=== PATIENT | female | born 1980 | race Caucasian/White ===

== ENCOUNTER → 2020-02-26 08:15 | Outpatient (CLI) | payer OTHER, SELFPAY ==
[2020-02-26 10:00] LABS: Cholesterol 229 mg/dL (140-199); HDL Cholesterol 59 mg/dL (40-60); LDL Cholesterol Calculated 150 mg/dL (<100); Triglycerides 101 mg/dL (35-150)
[2020-02-26 10:01] LABS: Alanine Aminotransferase 9 IU/L (<35); Albumin 4.5 g/dL (3.5-5.0); Albumin Globulin Ratio 1.7 (1.0-2.8); Alkaline Phosphatase 54 U/L (38-126); Aspartate Aminotransferase 22 IU/L (14-36); BUN Creatinine Ratio 17.8 (6-22); Bilirubin Total 0.8 mg/dL (0.2-1.3); Blood Urea Nitrogen 13 mg/dL (7-17); Calcium 9.7 mg/dL (8.4-10.2); Carbon Dioxide 25 mmol/L (22-32); Chloride 104 mmol/L (98-107); Estimated Glomerular Filt Rate > 60.0 mL/min (>60); Globulin 2.6 g/dL (1.7-4.1); Glucose 101 mg/dL (70-100); HEMOLYSIS < 15 (0-50); Potassium 4.5 mmol/L (3.4-5.1); Sodium 135 mmol/L (137-145); Total Protein 7.1 g/dL (6.3-8.2)
== END ==
PROVIDERS: Family Provider Family Medicine; PCP Family Medicine; Referring Provider Registered Nurse; Visit Provider Registered Nurse
DX: B00.9 Herpesviral infection, unspecified (principal); E66.3 Overweight; Z83.438 Family history of other disorder of lipoprotein metabolism and other lipidemia
CPT/HCPCS: 80053; 80061

== ENCOUNTER → 2020-12-06 08:59 | Outpatient (CLI) | payer OTHER, SELFPAY ==
--- NOTE | 2020-12-06 09:02 | DI.CT.S_ITS ---
PROCEDURE: CT SINUS SCREEN WO CON INDICATIONS: Sinusitis TECHNIQUE: Noncontrast 3.0 mm axial images acquired from the frontal sinuses to the mid-sella, with coronal and sagittal reformats. For radiation dose reduction, the following was used: automated exposure control, adjustment of mA and/or kV according to patient size. COMPARISON: None. FINDINGS: Image quality: Excellent. Maxillary Sinuses: No bony remodeling or destruction. Sinuses are clear. Ethmoid Air Cells: No bony remodeling or destruction. Sinuses are clear. Sphenoid Sinuses: No bony remodeling or destruction. Sinuses are clear. Frontal Sinuses: No bony remodeling or destruction. Sinuses are clear. Ostiomeatal Complexes: Ostiomeatal complexes are patent. No Naomie cells. Miscellaneous: Visualized intra-orbital contents are normal. Right-sided tiago bullosa. No paradoxical nasal turbinate curvature. Mild S-shaped nasal septal deviation with minimal spurring to the right at the level of the inferior nasal turbinate. Asymmetric elevation of the right fovea ethmoidalis when compared with the left by approximately 3 millimeters. IMPRESSION: No findings of acute or chronic sinusitis. Right tiago bullosa and mild nasal septal deviation. Dictated by: Roberth Frederick M.D. on 12/06/2020 at 9:44 Approved by: Roberth Frederick M.D. on 12/06/2020 at 9:46
== END ==
PROVIDERS: Family Provider Family Medicine; PCP Family Medicine; Referring Provider Family Medicine; Visit Provider Family Medicine
DX: J32.9 Chronic sinusitis, unspecified (principal); J34.2 Deviated nasal septum; J34.89 Other specified disorders of nose and nasal sinuses
CPT/HCPCS: 70486

== ENCOUNTER → 2022-06-05 11:46 | Outpatient (CLI) | payer OTHER, SELFPAY ==
[2022-06-05 13:19] LABS: Add Manual Diff / Slide Review NO; Basophils Absolute Auto 100 /uL (0-100); Basophils Percent Auto 0.9 % (0-2); Eosinophils Absolute Auto 500 /uL (0-450); Eosinophils Percent Auto 6.8 % (2-4); Hematocrit 41.7 % (36-46); Hemoglobin 14.1 g/dL (12.0-16.0); Lymphocytes Absolute Auto 2800 /uL (1100-4500); Mean Corpuscular HGB Conc 33.9 % (30-36); Mean Corpuscular Hemoglobin 31.7 PG (26-34); Mean Corpuscular Volume 93.7 fL (80-100); Monocytes Absolute Auto 400 /uL (0-900); Monocytes Percent Auto 5.7 % (3-14); Neutrophils Absolute Auto 3700 /uL (1500-7000); Neutrophils Percent Auto 49.6 % (50-75); Platelet Count 297 X10^3/uL (150-400); Red Blood Cell Count 4.45 X10^6/uL (4.0-5.2); Red Cell Distribution Width 12.7 % (11.6-14.8); White Blood Cell Count 7.6 X10^3/uL (4.5-11.0)
[2022-06-05 13:22] LABS: Alanine Aminotransferase 14 IU/L (<35); Albumin 4.5 g/dL (3.5-5.0); Albumin Globulin Ratio 1.6 (1.0-2.8); Alkaline Phosphatase 65 U/L (38-126); Aspartate Aminotransferase 20 IU/L (14-36); BUN Creatinine Ratio 13.2 (6-22); Bilirubin Total 0.5 mg/dL (0.2-1.3); Blood Urea Nitrogen 10 mg/dL (7-17); Carbon Dioxide 30 mmol/L (22-32); Chloride 98 mmol/L (98-107); Estimated Glomerular Filt Rate > 60 mL/min (>60); Globulin 2.9 g/dL (1.7-4.1); Glucose 90 mg/dL (70-100); HEMOLYSIS < 15 (0-50); Lipase 42 U/L (23-300); Potassium 4.6 mmol/L (3.4-5.1); Sodium 137 mmol/L (137-145); Total Protein 7.4 g/dL (6.3-8.2)
== END ==
PROVIDERS: Family Provider Family Medicine; PCP Family Medicine; Referring Provider Family Medicine; Visit Provider Family Medicine
DX: R10.11 Right upper quadrant pain (principal)
CPT/HCPCS: 36415; 80053; 83690; 85025

== ENCOUNTER → 2022-08-03 08:18 | Outpatient (CLI) | payer OTHER, SELFPAY ==
--- NOTE | 2022-08-03 08:20 | DI.MG.S_ITS ---
BILATERAL DIGITAL SCREENING MAMMOGRAM 3D/2D WITH CAD: 08/03/2022 CLINICAL: Routine screening. Baseline exam. Family history of breast cancer. No prior exams were available for comparison. Both breasts are heterogeneously dense, which may obscure small masses (category c / 51-75% glandular tissue). Current study was also evaluated with a Computer Aided Detection (CAD) system. No significant masses, calcifications, or other findings are seen in either breast. IMPRESSION: NEGATIVE There is no mammographic evidence of malignancy. A 1 year screening mammogram is recommended. Based on Tyrer-Cuzick model (a risk assessment model), the patient's lifetime risk is 23.1% and her 10 year risk is 3.4%. If a patient has an elevated risk, a more comprehensive evaluation should be considered and/or a referral to a genetic counselor. The [place] [employer], [employer], and NCCN Guidelines advise the consideration of Breast MRI as an adjunct to screening mammography in patients whose Lifetime risk to develop breast cancer is 20% or higher. This exam was interpreted at Station ID: [id number]. NOTE: For mammograms, a report in lay terms will be sent to the patient. Approximately 15% of breast malignancies will not be visualized mammographically. In the management of a palpable breast mass, a negative mammogram must not discourage biopsy of a clinically suspicious lesion. Electronically Signed By: Neisha hassan/may:08/03/2022 14:59:25 letter sent: Normal Exam ACR BI-RADS Category 1: Negative [id number]
--- NOTE | 2022-08-03 08:20 | DI.US.S_ITS ---
PROCEDURE: US PELVIC COMPLETE INDICATIONS: RIGHT PELVIC PAIN TECHNIQUE: Real-time scanning was performed of the pelvic organs, with image documentation. Additional endovaginal scanning was necessary due to incomplete visualization of the adnexal and endometrial structures by transabdominal scanning. COMPARISON: [facility], US, PELVIC COMPLETE, 05/04/2011, 13:52. FINDINGS: Uterus: Uterus is anteverted and normal in size at 8.5 x 4.1 x 6.7 cm. The myometrium is homogeneous. The endometrium measures 4 mm combined thickness. Intrauterine device is seen in expected position within the endometrial canal. Ovaries: The right ovary measures 1.7 x 2.8 x 2.3 cm cm, with a calculated ovarian volume of 5.7 cc. The left ovary measures 1.6 x 2.9 x 1.5 cm, with a calculated ovarian volume of 3.5 cc. The ovaries have a normal sonographic appearance. A minimally complicated septated anechoic cyst in the right ovary measures 1.3 x 2.3 x 1.6 cm. Less than 12 follicles can be seen in each ovary. No adnexal masses are seen. Other: No pathologic free abdominal or pelvic fluid. IMPRESSION: 1. No sonographic signs of ovarian torsion. 2. Right ovarian 2.3 cm cyst contains a single thin septation and is almost certainly benign. 3. Intrauterine device in appropriate position. We strive to produce accurate, complete, and clear reports of imaging services. To assist us in improving patient care, this report was composed using standard report templates and voice recognition software. Therefore, it may contain abnormal punctuation, insertions and/or omissions. Occasional wrong-word or sound-alike substitutions may occur. Though we review the report and make efforts to correct it, we do recommend that the report be read carefully in proper context to recognize any text inaccuracies. Approved by: Clement Blanchard M.D. on 08/03/2022 at 9:57
--- NOTE | 2022-08-03 08:20 | DI.US.S_ITS ---
PROCEDURE: US ABDOMEN LIMITED INDICATIONS: RUQ PAIN TECHNIQUE: Real-time focused scanning was performed of the abdomen, with image documentation. COMPARISON: None. FINDINGS: Liver is normal in size and echogenicity. The gallbladder appears normal without gallstones or gallbladder wall thickening. There is no pericholecystic fluid. Sonographic Torres sign is negative. No intrahepatic or extrahepatic biliary ductal dilatation. The common bile duct measures 3 mm in diameter. Visualized portions of the pancreas are unremarkable. No free fluid in the right upper quadrant. IMPRESSION: No significant sonographic abnormality in the right upper quadrant. Approved by: Clement Blanchard M.D. on 08/03/2022 at 9:58
== END ==
PROVIDERS: Family Provider Family Medicine; PCP Family Medicine; Referring Provider Family Medicine; Visit Provider Family Medicine
DX: Z12.31 Encounter for screening mammogram for malignant neoplasm of breast (principal); N94.0 Mittelschmerz; R10.11 Right upper quadrant pain; Z80.3 Family history of malignant neoplasm of breast; N83.201 Unspecified ovarian cyst, right side; Z97.5 Presence of (intrauterine) contraceptive device
CPT/HCPCS: 76705; 76830; 76856; 77063; 77067; 93976

== ENCOUNTER → 2022-09-11 14:41 | Outpatient (CLI) | payer OTHER, SELFPAY ==
[2022-09-11 15:49] LABS: Pregnancy Test Urine Negative (Negative)
== END ==
PROVIDERS: Family Provider Family Medicine; PCP Family Medicine; Visit Provider Physician Assistant
DX: N39.0 Urinary tract infection, site not specified (principal); R14.0 Abdominal distension (gaseous)
CPT/HCPCS: 81025; 87086

== ENCOUNTER 2022-09-12 08:21 | Emergency (ER) | payer OTHER, SELFPAY ==
[2022-09-12 08:25] VITALS: BP 118/68; PULSE 92; RESP 16; TEMP 36.4; O2SAT 99; BMI 30.3
--- NOTE | 2022-09-12 08:43 | DI.US.S_ITS ---
PROCEDURE: US PELVIC COMPLETE INDICATIONS: pelvic pain, recently identified cyst, IUD removal TECHNIQUE: Real-time scanning was performed of the pelvic organs, with image documentation. Additional endovaginal scanning was necessary due to incomplete visualization of the adnexal and endometrial structures by transabdominal scanning. COMPARISON: [facility], US, US PELVIC COMPLETE, 08/03/2022, 8:27. FINDINGS: Uterus: Uterus is anteverted and normal in size at 8.0 x 4.0 x 5.9 cm. The myometrium is heterogeneous. The endometrium measures 2.3 mm combined thickness. No fibroids noted. Ovaries: The right ovary measures 2.3 x 3.2 x 1.8 cm, with a calculated ovarian volume of 7.0 cc. The left ovary measures 2.0 x 1.5 x 1.8 cm, with a calculated ovarian volume of 2.8 cc. The ovaries have a normal sonographic appearance. Less than 12 follicles can be seen in each ovary. There is a hemorrhagic right ovarian cyst measuring 1.7 x 1.1 x 1.6 cm. No adnexal masses are seen. Other: No pathologic free abdominal or pelvic fluid. IMPRESSION: 1. Small hemorrhagic right ovarian cyst. 2. Otherwise unremarkable study. We strive to produce accurate, complete, and clear reports of imaging services. To assist us in improving patient care, this report was composed using standard report templates and voice recognition software. Therefore, it may contain abnormal punctuation, insertions and/or omissions. Occasional wrong-word or sound-alike substitutions may occur. Though we review the report and make efforts to correct it, we do recommend that the report be read carefully in proper context to recognize any text inaccuracies. Dictated by: Dl Shore M.D. on 09/12/2022 at 9:58 Approved by: Dl Shore M.D. on 09/12/2022 at 10:01
[2022-09-12 09:13] LABS: Appearance Urine UA CLEAR; Bilirubin Urine UA NEGATIVE (NEGATIVE); Color Urine UA YELLOW; Glucose Urine UA NEGATIVE (Negative); Ketones Urine UA NEGATIVE (NEGATIVE); Leukocyte Esterase Urine UA NEGATIVE (NEGATIVE); Nitrite Urine UA NEGATIVE (Negative); Occult Blood Urine UA NEGATIVE (Negative); Protein Urine UA NEGATIVE (Negative); Urobilinogen Urine UA 0.2 E.U./dL (0.2)
[2022-09-12 09:24] LABS: Bacteria Urine None Seen; Culture Indicated Urine Cult Not Indicated; RBC Urine None Seen (0-5/HPF); Urine Comments Microscopic Normal; WBC Urine None Seen (0-5/HPF)
[2022-09-12 09:30] LABS: Add Manual Diff / Slide Review NO; Basophils Absolute Auto 100 /uL (0-100); Basophils Percent Auto 0.9 % (0-2); Eosinophils Absolute Auto 600 /uL (0-450); Eosinophils Percent Auto 6.3 % (2-4); Hematocrit 39.2 % (36-46); Hemoglobin 13.1 g/dL (12.0-16.0); Lymphocytes Absolute Auto 2200 /uL (1100-4500); Lymphocytes Percent Auto 23.6 % (25-40); Mean Corpuscular HGB Conc 33.3 % (30-36); Mean Corpuscular Hemoglobin 31.7 PG (26-34); Mean Corpuscular Volume 95.3 fL (80-100); Monocytes Absolute Auto 500 /uL (0-900); Monocytes Percent Auto 5.7 % (3-14); Neutrophils Absolute Auto 6000 /uL (1500-7000); Neutrophils Percent Auto 63.5 % (50-75); Platelet Count 310 X10^3/uL (150-400); Red Blood Cell Count 4.12 X10^6/uL (4.0-5.2); Red Cell Distribution Width 13.7 % (11.6-14.8); White Blood Cell Count 9.4 X10^3/uL (4.5-11.0)
[2022-09-12 09:42] LABS: Alanine Aminotransferase 14 IU/L (<35); Albumin 4.4 g/dL (3.5-5.0); Albumin Globulin Ratio 1.5 (1.0-2.8); Alkaline Phosphatase 62 U/L (38-126); Aspartate Aminotransferase 21 IU/L (14-36); BUN Creatinine Ratio 12.7 (6-22); Bilirubin Total 0.8 mg/dL (0.2-1.3); Blood Urea Nitrogen 8 mg/dL (7-17); Calcium 9.2 mg/dL (8.4-10.2); Carbon Dioxide 28 mmol/L (22-32); Chloride 102 mmol/L (98-107); Estimated Glomerular Filt Rate > 60 mL/min (>60); Glucose 93 mg/dL (70-100); HEMOLYSIS < 15 (0-50); Sodium 136 mmol/L (137-145); Total Protein 7.4 g/dL (6.3-8.2)
[2022-09-12 10:38] VITALS: BP 117/68; PULSE 70; RESP 18; O2SAT 99
--- NOTE | 2022-09-13 11:44 | ED_ITS ---
HPI - Female Genitourinary General Chief complaint: Urogenital-Female Stated complaint: had IUD removed T-14 has pain/feels need to pee Time Seen by Provider: 09/12/22 08:24 Source: patient Mode of arrival: Ambulatory History of Present Illness HPI Narrative: 42-year-old female presenting with dysuria and pelvic pain following IUD removal approximately 2 weeks prior to presentation. Patient reports that she developed irritation with urination and frequent urination following IUD removal. Patient has had 2 urinalysis test completed since this procedure that showed no clear evidence of infection. Presents for repeat evaluation. Patient was noted to have a ovarian cyst on recent pelvic ultrasound. No fevers. No flank pain. Related Data Home Medications Medication Instructions Recorded Confirmed levonorgestrel 21 mcg/24 hours (8 52 mg INTRAU ##0 09/24/16 08/21/22 yrs) 52 mg intrauterine device (Mirena) azelastine 137 mcg (0.1 %) nasal 2 spray intranasal BID PRN 12/27/20 08/21/22 spray aerosol olopatadine 0.7 % eye drops 1 drp EYE-BOTH 12/27/20 08/21/22 Previous Rx's Medication Instructions Recorded clotrimazole-betamethasone 1 1 applictn topical BID #15 grams 10/22/19 %-0.05 % topical cream albuterol sulfate 2.5 mg/3 mL 2.5 mg (3 mL) inhalation Q4-6H PRN 03/24/20 (0.083 %) solution for nebulization shortness of breath or wheezing #90 mL triamcinolone acetonide 0.025 % 1 applictn topical BID #15 grams 04/25/20 topical cream hydroxyzine pamoate 25 mg capsule 25 mg PO Q4HP PRN anxiety #90 caps 10/17/20 (Vistaril) albuterol sulfate 90 mcg/actuation 2 puff inhalation Q4-6H #6.7 grams 06/05/22 aerosol inhaler (Proventil HFA) famotidine 40 mg tablet See Rx Instructions .Route 06/05/22 .COMPLEX #90 tabs fluticasone 250 mcg-salmeterol 50 1 inh inhalation BID #60 ea 06/05/22 mcg/dose blistr powdr for inhalation (Advair Diskus) valacyclovir 1 gram tablet 1,000 mg PO BID #20 tabs 07/09/22 methylphenidate HCl 27 mg 27 mg PO QAM #30 tabs 07/11/22 tablet,extended release 24 hr alprazolam 0.5 mg tablet 0.5 mg PO BID PRN anxiety #20 tabs 08/12/22 cephalexin 500 mg capsule 500 mg PO TID #15 caps 09/12/22 Allergies Allergy/AdvReac Type Severity Reaction Status Date / Time crab AdvReac Intermediate Vomiting Verified 09/12/22 08:56 Patient History Medical History Attention deficit hyperactivity disorder (ADHD) Herpes simplex Panic disorder (07/06/13) Family History Father Age: 71 Diabetes mellitus Heart transplanted Heart disease Essential hypertension Grandmother Diabetes mellitus Essential hypertension High cholesterol Mother Age: 73 Diabetes mellitus Malignant neoplasm of female breast, unspecified laterality, unspecified site of breast alcohol intake frequency: 0-2 drinks per day Substance Use Type: marijuana Exam Narrative Exam Narrative: Vitals reviewed. Nursing note reviewed Constitutional: interactive HENT: Moist mucous membranes EYES: No scleral icterus NECK: no masses CV: Well perfused peripherally, no cyanosis present PULM: Unlabored respirations, symmetric chest rise ABD: Non-distended Pelvic: normal appearing external genitalia, no bleeding, scant vaginal discharge, no vaginal lesions noted, no obvious prolapse appreciated MS: No gross deformities, no asymmetric edema noted SKIN: Warm and dry. PSYCH: Appropriate affect NEURO: Follows simple commands, moves extremities, interactive with exam Initial Vital Signs Initial Vital Signs: Vital Signs Temperature 97.5 F L 09/12/22 08:25 Pulse Rate 92 H 09/12/22 08:25 Respiratory Rate 16 09/12/22 08:25 Blood Pressure 118/68 09/12/22 08:25 Pulse Oximetry 99 09/12/22 08:25 Oxygen Delivery Method 09/12/22 08:25 MDM - Female Genitourinary Lab Data 09/12/22 09:20 09/12/22 09:20 Labs: Lab Results 09/12/22 09/12/22 09/12/22 Range/Units 08:35 09:20 09:20 WBC 9.4 (4.5-11.0) X10^3/uL RBC 4.12 (4.0-5.2) X10^6/uL Hgb 13.1 (12.0-16.0) g/dL Hct 39.2 (36-46) % MCV 95.3 (80-100) fL MCH 31.7 (26-34) PG MCHC 33.3 (30-36) % RDW 13.7 (11.6-14.8) % Plt Count 310 (150-400) X10^3/uL Neut % (Auto) 63.5 (50-75) % Lymph % (Auto) 23.6 L (25-40) % [place] % (Auto) 5.7 (3-14) % Eos % (Auto) 6.3 H (2-4) % Baso % (Auto) 0.9 (0-2) % Neut # (Auto) 6000 (8166-7647) /uL Lymph # (Auto) 2200 (5536-1462) /uL [place] # (Auto) 500 (0-900) /uL Eos # (Auto) 600 H (0-450) /uL Baso # (Auto) 100 (0-100) /uL Sodium 136 L (137-145) mmol/L Potassium 4.0 (3.4-5.1) mmol/L Chloride 102 (98-107) mmol/L Carbon Dioxide 28 (22-32) mmol/L BUN 8 (7-17) mg/dL Creatinine 0.63 (0.52-1.04) mg/dL Estimated GFR > 60 (>60) mL/min BUN/Creatinine Ratio 12.7 (6-22) Glucose 93 (70-100) mg/dL Calcium 9.2 (8.4-10.2) mg/dL Total Bilirubin 0.8 (0.2-1.3) mg/dL AST 21 (14-36) IU/L ALT 14 (<35) IU/L Alkaline Phosphatase 62 (38-126) U/L Total Protein 7.4 (6.3-8.2) g/dL Albumin 4.4 (3.5-5.0) g/dL Globulin 3.0 (1.7-4.1) g/dL Albumin/Globulin Ratio 1.5 (1.0-2.8) Urine Color Yellow Urine Appearance Clear Urine pH 7.0 (4.5-8.0) Ur Specific [place] 1.010 (1.000-1.035) Urine Protein Negative (Negative) Urine Glucose (UA) Negative (Negative) g/dL Urine Ketones Negative (NEGATIVE) Urine Occult Blood Negative (Negative) Urine Nitrate Negative (Negative) Urine Bilirubin Negative (NEGATIVE) Urine Urobilinogen 0.2 (0.2) E.U./dL Ur Leukocyte Esterase Negative (NEGATIVE) Urine RBC None seen (0-5/HPF) Urine WBC None seen (0-5/HPF) Urine Bacteria None seen (None) Ur Culture Indicated? Cult not indicated Micro UA Comment Microscopic normal Point of Care Testing Test Results Negative MDM Narrative Medical decision making narrative: 42-year-old female presenting dysuria and increased urinary frequency in the setting of recent removal. Initial vital signs notable for no significant abnormalities. Physical exam notable for a well-appearing 42-year-old female in no acute distress, reassuring cardiopulmonary exam, benign abdomen, pelvic exam without obvious lesions or prolapse. Initial concern for infectious etiology including urinary tract infection, cystitis, pyelonephritis, occult sepsis, uterine versus bladder prolapse, STI, vaginal infection. Urinalysis completed on presentation without evidence of infection. Pelvic ul trasound obtained and notable for complex avascular cyst as above. Screening labs obtained and reassuring as above. Given patient's overall reassuring evaluation, low suspicion for acute emergent intra-abdominal pathology. Patient has no evidence of pyelonephritis and no evidence of occult sepsis. Patient's symptoms do seem consistent with cystitis. Discussed trial of outpatient antibiotics and close repeat evaluation. Discussed plan for repeat evaluation with hog confinement system manager provider if symptoms do not improve with short course of antibiotics. Discharge Plan Departure Patient Disposition: Home Clinical Impression: Cystitis Instructions: Acute Cystitis Activity Restrictions/Additional Instructions: Please take the antibiotics as prescribed. Please return to the emergency department new or worsening symptoms. Please follow up in outpatient setting with your hog confinement system manager provider if your symptoms do not improve following treatment. Prescriptions: New cephalexin 500 mg capsule 500 mg PO TID Qty: 15 0RF No Action olopatadine 0.7 % drops 1 drp EYE-BOTH azelastine 137 mcg (0.1 %) aerosol,spray 2 spray intranasal BID PRN Rx Instructions: administer into each nostril albuterol sulfate [Proventil HFA] 90 mcg/actuation HFA aerosol inhaler 2 puff Inhalation Q4-6H Qty: 6.7 2RF famotidine 40 mg tablet See Rx Instructions .ROUTE .COMPLEX Qty: 90 3RF Dose Instruction: TAKE 1 TABLET BY MOUTH DAILY Rx Instructions: TAKE 1 TABLET BY MOUTH DAILY fluticasone propion-salmeterol [Advair Diskus] 250-50 mcg/dose blister with device 1 inh inhalation BID Qty: 60 5RF levonorgestrel [Mirena] 1 EACH intrauterine device 52 mg INTRAU Qty: 0 clotrimazole-betamethasone 1-0.05 % cream 1 applictn topical BID Qty: 15 2RF albuterol sulfate 2.5 mg /3 mL (0.083 %) solution for nebulization 2.5 mg INHALATION Q4-6H PRN (Reason: shortness of breath or wheezing) Qty: 90 1RF triamcinolone acetonide 0.025 % cream 1 applictn TOP BID Qty: 15 0RF hydroxyzine pamoate [Vistaril] 25 mg capsule 25 mg PO Q4HP PRN (Reason: anxiety) Qty: 90 1RF valacyclovir 1 gram tablet 1,000 mg PO BID Qty: 20 2RF methylphenidate HCl 27 mg tablet extended release 24hr 27 mg PO QAM Qty: 30 0RF alprazolam 0.5 mg tablet 0.5 mg PO BID PRN (Reason: anxiety) Qty: 20 0RF Referrals: Goldie Medel MD [Primary Care Provider] - Stand Alone Forms: Patient Portal/API
== END 2022-09-12 10:50 | disposition home or self-care (01) ==
PROVIDERS: Emergency Provider Emergency Medicine; Family Provider Family Medicine; PCP Family Medicine
DX: N30.00 Acute cystitis without hematuria (principal)
CPT/HCPCS: 36415; 76830; 76856; 80053; 81001; 81025; 85025; 87210; 93976; 99284

== ENCOUNTER → 2022-09-27 14:30 | Outpatient (CLI) | payer OTHER, SELFPAY | PROVIDERS: Family Provider Family Medicine; PCP Family Medicine; Visit Provider Physician Assistant | DX: R10.2 Pelvic and perineal pain (principal) | CPT/HCPCS: 87070; 87205; 87210 ==

== ENCOUNTER → 2025-04-25 11:07 | Outpatient (CLI) | payer OTHER, SELFPAY | PROVIDERS: Family Provider Family Medicine; PCP Family Medicine; Visit Provider Registered Nurse | DX: N89.8 Other specified noninflammatory disorders of vagina (principal); R30.0 Dysuria | CPT/HCPCS: 87086; 87210 ==